=== PATIENT | female | born 1990 | race Caucasian/White ===

== ENCOUNTER 2019-08-24 11:29 | Emergency (ER) | payer BC, SELFPAY ==
[2019-08-24 11:38] VITALS: BP 150/89; PULSE 89; RESP 20; TEMP 36.9; O2SAT 98
--- NOTE | 2019-08-24 12:04 | ED.URI ---
HPI - URI/Sore Throat General Chief Complaint: Upper Respiratory Infection Stated Complaint: cough aches and sneezes Time Seen by Provider: 08/24/19 11:49 Source: patient and RN notes reviewed Mode of arrival: ambulatory Limitations: no limitations History of Present Illness HPI Narrative: Patient presents today with a 3-day history of cough, body aches, chest wall pain, headache, sore throat, congestion, rhinorrhea, fever up to 101.5. Denies shortness of breath. She has been taking Tylenol and Claritin. Claritin is not providing relief. Tylenol does bring down the fever. Father of daughter's friend has recently tested postive for COVID-19. Daughter has been in contact with friend, but not with friends father. MD elicited complaint: fever and cough Related Data Home Medications Medication Instructions Recorded Confirmed No Home Medications 08/24/19 08/24/19 Allergies Allergy/AdvReac Type Severity Reaction Status Date / Time No Known Allergies Allergy Verified 08/24/19 11:55 Review of Systems Review of Systems: Narrative: CONSTITUTIONAL: Denies chills, or sweats.+ Fever, body aches EYES: Denies visual changes, redness, or discharge. ENT: Denies otalgia.+ Congestion, rhinorrhea, sore throat CARDIOVASCULAR: Denies chest pain, palpitations, or edema. RESPIRATORY: Denies dyspnea.+ Cough, chest wall pain GASTROINTESTINAL: Denies abdominal pain, nausea, vomiting, or diarrhea. GENITOURINARY: Denies dysuria or hematuria. SKIN: Denies rash, itching, or wounds. MUSCULOSKELETAL: Denies back pain, joint pain, or myalgia. NEUROLOGIC: Denies numbness, tingling, or weakness.+ Headache PSYCH: Denies depression or anxiety. PMFSH Comments At time of signature, I have reviewed and agree with nursing past medical, surgical, social and family history unless otherwise noted. Please see nursing chart for further information. There is no relevant family history pertinent to the presenting complaint Exam Narrative: Exam Narrative: GENERAL: Well-appearing, well-nourished, and in no acute distress. HEAD: Normocephalic, atraumatic. EYES: EOMI. No redness or drainage. Conjunctivae normal. ENT: Mucous membranes pink and moist. Nares clear. + Rhinorrhea. TMs normal bilaterally. Throat normal. Uvula midline. NECK: Normal AROM. Supple. No lymphadenopathy. CHEST: No respiratory distress. Clear to auscultation. HEART: Regular rate and rhythm. No murmur appreciated. Normal peripheral pulses. EXTREMITIES: Normal range of motion. No edema. SKIN: Warm, dry, no rash. Capillary refill normal. Normal skin turgor. NEURO: No focal deficits. Alert and oriented x3. Gait steady. PSYCH: Normal affect. No signs of depression or anxiety. Course Vital Signs Vital signs: Vital Signs Temperature 98.4 F 08/24/19 11:38 Pulse Rate 89 08/24/19 11:38 Respiratory Rate 20 08/24/19 11:38 Blood Pressure 150/89 H 08/24/19 11:38 Pulse Oximetry 98 08/24/19 11:38 Temperature 98.4 F 08/24/19 11:38 Pulse Rate 89 08/24/19 11:38 Respiratory Rate 20 08/24/19 11:38 Blood Pressure 150/89 H 08/24/19 11:38 Pulse Oximetry 98 08/24/19 11:38 Reviewed. Pt has been instructed to follow up with her PCP regarding her elevated blood pressure today. MDM - URI/Sore Throat MDM Narrative Medical decision making narrative: Due to recent exposure and symptoms, patient may have a possible COVID-19 infection. Signs and symptoms discussed with patient. Patient educated to self-isolate in a room in his/her home away from others they live with. Use mask if available. Patient was advised not to leave house for any reason ? Self-treatment discussed including Tylenol for fever, pain, or myalgia, and cough cold medications for symptoms. Patient to check temperature daily and monitor for symptoms of respiratory distress. Patient should check in daily with primary care office/system via phone/virtual platform ? Nature of the disease t
== END 2019-08-24 12:13 | disposition home or self-care (01) ==
PROVIDERS: Emergency Provider Nurse Practitioner
DX: J06.9 Acute upper respiratory infection, unspecified (principal); Z20.828 Contact with and (suspected) exposure to other viral communicable diseases
CPT/HCPCS: 99211; G0463